=== PATIENT | male | born 2000 | race Caucasian/White ===

== ENCOUNTER 2025-05-01 11:09 | Emergency (ER) | payer OTHER ==
[~2025-05-01] VITALS: Ht 182.9 cm; Wt 82.0 kg
[2025-05-01 14:08] VITALS: BP 139/89; TEMP 97.7; O2SAT 97
== END 2025-05-01 14:11 | disposition home or self-care (01) ==
LOC: M ED 11:09
DX: S13.4XXA Sprain of ligaments of cervical spine, initial encounter (principal); V49.40XA Driver injured in collision with unspecified motor vehicles in traffic accident, initial encounter; Y92.9 Unspecified place or not applicable; Y93.9 Activity, unspecified; Y99.9 Unspecified external cause status